=== PATIENT | female | born 1980 | race Caucasian/White ===

== ENCOUNTER 2021-11-12 16:31 | Emergency (ER) | payer SELFPAY ==
[~2021-11-12] VITALS: Ht 154.9 cm; Wt 66.7 kg
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
[2021-11-12] MEDS ORDERED: MORPHINE SULFATE INJ 4 MG/ML DISP.SYRIN ONE ×2 (16:46→18:14)
--- NOTE | 2021-11-12 16:50 | NUR ---
BLOOD DRAWN AND SENT TO LAB
--- NOTE | 2021-11-12 16:55 | NUR ---
XRAY DONE AT RADIOLOGY DEPT
--- NOTE | 2021-11-12 16:55 | NUR ---
PT WAS BROUGHT TO RADIOLOGY DEPARTMENT VIA GURNEY FOR CT SCAN
[2021-11-12] MEDS ORDERED: MORPHINE SULFATE INJ 2 MG/ML DISP.SYRIN IV ONE ×2 (17:00→18:30)
--- NOTE | 2021-11-12 18:00 | NUR ---
PATIENT IS STILL IN PAIN 10/10 ON HER LEFT ELBOW. DR DIAZ MADE AWARE
[2021-11-12] MEDS ORDERED: HYDR-4209 PO (18:58)
[2021-11-12] MEDS ORDERED: IBUP-1957 PO (18:58)
--- NOTE | 2021-11-12 18:59 | NUR ---
STEFANY DAUGHTER PLEASE CALL WHEN PT READY TO DC.
--- NOTE | 2021-11-12 19:00 | NUR ---
CAST APPLIED TO LEFT FA OF PT
--- NOTE | 2021-11-12 19:35 | NUR ---
Patient discharged to home in stable condition. Written and verbal after care instructions given. Patient verbalizes understanding of instruction.
[2021-11-12 19:36] VITALS: BP 125/82
== END 2021-11-12 19:36 | disposition home or self-care (01) ==
LOC: ER 16:35
DX: S52.572A Other intraarticular fracture of lower end of left radius, initial encounter for closed fracture (principal); M54.2 Cervicalgia; R51.9 Headache, unspecified; V43.52XA Car driver injured in collision with other type car in traffic accident, initial encounter; Y93.89 Activity, other specified; Y92.413 State road as the place of occurrence of the external cause; Y99.8 Other external cause status
CPT/HCPCS: 29125; 70450; 70486; 72125; 73060; 73090; 73110; 96374; 96376; 99284; J2270 ×2